=== PATIENT | male | born 1960 | race Caucasian/White ===

== ENCOUNTER 2025-03-14 09:52 | Emergency (ER) | payer MEDICARE ==
[2025-03-14] MEDS: Acetaminophen/oxyCODONE 325-5 MG Tab PO ONE (10:16)
== END 2025-03-14 11:35 | disposition home or self-care (01) ==
LOC: JD.ED 09:52
DX: R07.89 Other chest pain (principal); Z79.899 Other long term (current) drug therapy; Z79.84 Long term (current) use of oral hypoglycemic drugs
CPT/HCPCS: 71101; 99283; A9270